=== PATIENT | female | born 1960 | race Caucasian/White ===

== ENCOUNTER 2016-07-08 20:24 | Emergency (ER) | payer OTHER ==
[~2016-07-08 20:24] MED LIST: ANASTROZOLE1 MG PO; ARICEPT10 M2 PO; ASPIR 8181 M1 PO; ASPIR 8181 MG PO; ASPIRIN325 M3 PO; ATORVASTATIN CA10 M1 PO; AUGMENTIN875 MG PO; AVELOX400 MG; BACTRIM DS1 TA1 PO; CALCIUM 1,0001 EACH PO; CALCIUM 600+D1 EAC6 PO; CHROMIUM PICO200 MCG PO; DILAUDID2 MG PO; FEMARA2.5 MG PO; KEFLEX500 M1 PO; KRILL OIL500 MG PO; LEXAPRO10 M1 PO; LEXAPRO10 M2 PO; LEXAPRO10 MG PO; LIPITOR10 MG PO; LISINOPRIL5 M1 PO; MELATONIN3 M4 PO; MELATONIN3 MG PO; MELATONIN5 M7 PO; MULTI VITAMIN1 EACH PO; MULTIVITAMINS1 EAC6 PO; NORCO 5/325 TAB1 TAB PO; ORPHENADRINE C100 M1 PO; PROBIOTIC1 EA10 PO; PROLIA60 MG/1 M1; RASPBERRY KETONE PO; SYNTHROID100 MC1 PO; SYNTHROID112 MCG PO; SYNTHROID88 MCG PO; TRAZODONE HCL50 M1 PO; TRAZODONE PO; TRAZODONE50 MG PO; TYLENOL PM EX-1 EAC1 PO; TYLENOL PM EX-1 EACH PO; TYLENOL325 M1 PO; TYLENOL325 MG PO; VENTOLIN HFA18 G2 INH; VITAMIN E400 UNI4 PO
[2016-07-08] MEDS ORDERED: AUGMENTIN 875-1 EAC2 PO (20:48)
[2016-07-08 21:44] LABS: ALB/GLOB RATIO 0.9 (0.8-2.0); ALBUMIN 3.5 g/dl (3.5-5.0); ALKALINE PHOSPHATASE 57 U/L (33-138); ALT/SGPT 34 U/L (12-78); BILIRUBIN,DIRECT <0.1 mg/dl (0.0-0.3); BILIRUBIN,INDIRECT 0.2 mg/dL (0.0-1.0); BILIRUBIN,TOTAL 0.3 mg/dl (0-1.5); BLOOD UREA NITROGEN 10 mg/dl (6-24); CALCIUM 8.7 mg/dl (8.5-10.5); CARBON DIOXIDE-VENOUS 26 mmol/L (22-32); CHLORIDE 104 mmol/l (96-110); CREATININE 0.73 mg/dl (0.50-1.10); GLUCOSE 103 mg/dL (70-110); SODIUM 138 mmol/L (135-145); eGFR VALUE FOR BLACK >90 mL/Min
[2016-07-08 22:01] LABS: ANION GAP 12 mmol/L (0-20); AST/SGOT 33 U/L (10-40); MAGNESIUM 2.3 mg/dl (1.3-2.6)
[2016-07-08 22:02] LABS: POTASSIUM 3.6 mmol/L (3.7-5.1)
== END 2016-07-08 22:39 ==
LOC: EDMED 20:24
PROVIDERS: Emergency Medicine
DX: M79.605 Pain in left leg (principal); K52.9 Noninfective gastroenteritis and colitis, unspecified; E87.6 Hypokalemia; J45.909 Unspecified asthma, uncomplicated; Z86.718 Personal history of other venous thrombosis and embolism
CPT/HCPCS: J1200; J2405; J7030

== ENCOUNTER 2016-10-08 12:24 | Emergency (ER) | payer OTHER ==
[~2016-10-08 12:24] MED LIST changes: +AUGMENTIN 875-1 EAC2 PO
[2016-10-08 13:55] LABS: BASO % 0.2 % (0-2); EOSINOPHIL ABSOLUTE COUNT 0.2 tho/cmm (0.0-0.7); HCT-HEMATOCRIT 41.3 % (34.0-49.0); HGB-HEMOGLOBIN 13.6 gm/dl (12.0-15.5); IMMATURE GRANULOCYTES ABSOLUTE 0.02 tho/cmm (0-0.03); IMMATURE GRANULOCYTES PERCENT 0.4 % (0-0.3); LYMPH % 29.3 % (20-45); LYMPH ABSOLUTE COUNT 1.6 tho/cmm (0.8-4.5); MCH (MEAN CORPUSCULAR HGB) 28.8 pg (28.0-32.0); MCHC MEAN CORPUSCULAR HGB CONC 32.9 % (32.0-36.0); MCV (MEAN CELL VOLUME) 87.5 fl (82.0-96.0); MEAN PLATELET VOLUME 10.6 cmc (9.4-12.4); MONO % 8.4 % (0-12); MONOCYTE ABSOLUTE COUNT 0.5 tho/cmm (0.0-1.2); NEUTROPHIL ABSOLUTE COUNT 3.3 tho/cmm (1.6-8.0); NEUTROPHIL-AUTOMATED 3.3 tho/cmm (1.6-8.0); NEUTROPHILS % 58.7 % (40-80); PLATELET COUNT 214 tho/cmm (150-450); RED BLOOD COUNT 4.72 mil/cmm (4.00-5.20); RED CELL DISTRIBUTION WIDTH 13.3 % (12.4-16.4); WHITE BLOOD COUNT 5.6 tho/cmm (4.0-10.0)
[2016-10-08 14:11] LABS: ALBUMIN 3.7 g/dl (3.5-5.0); ALKALINE PHOSPHATASE 110 U/L (33-138); ALT/SGPT 27 U/L (12-78); ANION GAP 11 mmol/L (0-20); AST/SGOT 19 U/L (10-40); BILIRUBIN,TOTAL 0.4 mg/dl (0-1.5); BLOOD UREA NITROGEN 12 mg/dl (6-24); C-REACTIVE PROTEIN 0.4 mg/dl (0-0.9); CALCIUM 9.3 mg/dl (8.5-10.5); CARBON DIOXIDE-VENOUS 26 mmol/L (22-32); CHLORIDE 107 mmol/l (96-110); CREATININE 0.72 mg/dl (0.50-1.10); GLUCOSE 93 mg/dL (70-110); LIPASE 439 U/L (73-393); POTASSIUM 4.3 mmol/L (3.7-5.1); SODIUM 140 mmol/L (135-145); eGFR VALUE FOR BLACK >90 mL/Min
[2016-10-08] MEDS ORDERED: CLARITIN10 M6 PO (14:19)
== END 2016-10-08 15:45 ==
LOC: EDMED 12:24
PROVIDERS: Nurse Practitioner Family
DX: R10.84 Generalized abdominal pain (principal); R11.0 Nausea; Z86.73 Personal history of transient ischemic attack (TIA), and cerebral infarction without residual deficits; Z85.3 Personal history of malignant neoplasm of breast; Z88.6 Allergy status to analgesic agent; Z87.19 Personal history of other diseases of the digestive system
CPT/HCPCS: J2405; J7030; Q9967